=== PATIENT | female | born 1980 | race Caucasian/White ===

== ENCOUNTER 2018-11-21 08:46 | Emergency (ER) | payer BC, OTHER ==
[~2018-11-21] VITALS: Ht 170 cm; Wt 93.2 kg
[2018-11-21] MEDS ORDERED: NS IV 1000 ML 1,000 ML IV SCH (09:16)
[2018-11-21] MEDS ORDERED: LORazepam INJ 2 MG/ML (ATIVAN) VIAL IVP ONE ×2 (09:30→10:15)
[2018-11-21] MEDS ORDERED: ONDANSETRON 4 MG/2 ML (SDV) Z0FRAN IVP ONE (09:30)
[2018-11-21 09:32] LABS: HEMOGLOBIN 14.5 G/DL (11.5-16.0); RED CELL DISTRIBUTION WIDTH 13.8 % (10.0-14.5)
[2018-11-21 09:33] LABS: MEAN PLATELET VOLUME 10.1 FL (7.4-10.4)
[2018-11-21 09:57] LABS: ALANINE AMINOTRANSFERASE 47 U/L (0-55); ALKALINE PHOSPHATASE 63 U/L (40-136); BILIRUBIN,TOTAL 0.3 MG/DL (0.1-1.0); BUN/CREATININE RATIO 26; CALCIUM 9.6 MG/DL (8.5-10.1); CARBON DIOXIDE 21 MMOL/L (21-32); CHLORIDE 103 MMOL/L (98-107); CREATININE SERUM 0.62 MG/DL (0.60-1.30); GFR ESTIMATED > 60; GLUCOSE 150 MG/DL (70-105); POTASSIUM 4.2 MMOL/L (3.6-5.0); SODIUM 137 MMOL/L (135-145); TOTAL PROTEIN 7.5 GM/DL (6.4-8.2)
[2018-11-21 09:58] LABS: ALBUMIN 4.4 GM/DL (3.2-4.5)
--- NOTE | 2018-11-21 10:22 | ED Psychosocial ---
General Chief Complaint: Substance Abuse Stated Complaint: SHAKINESS WEAK Nursing Triage Note: PT COMES IN SHAKING AND CRAWLING OUT OF HER SKIN AND REPORTS SHE HAS BEEN DRINKING ABOUT A PINT OF WHISLEY EVERYDAY FOR THE PAST 2 WEEKS. SHE IS HAVING ANXIETY AND WITHDRAWALS THIS AM. History of Present Illness Date Seen by Provider: Nov 21, 2018 Time Seen by Provider: 08:45 Initial Comments The patient is a 38-year-old female with a history of anxiety and depression who presents with concern for tremulousness and anxiety as well as hypertension and tachycardia in the setting of several months of alcohol abuse. Patient states that over the past couple of days she has been trying to taper her drinking, which has typically been more than a pint a day of liquor. She states that over the past couple of days she has been more and more shaky. She denies any seizures. Patient is alert and oriented 4 and pleasantly and appropriately interactive and in no significant distress, although as noted is quite tremulous here in the emergency department. She denies fevers, vomiting, cough, shortness of breath or chest pain, abdominal pain of any kind, flank pain, back pain, dysuria or hematuria, changes in bowel habits. Allergies and Home Medications Allergies Coded Allergies: No Known Drug Allergies (Unverified , 11/21/18) Patient Home Medication List Home Medication List Reviewed: Yes Review of Systems Constitutional: see HPI All Other Systems Reviewed Negative Unless Noted: Yes (Negative excepted noted.) Past Nkgzlvl-Okjbdc-Gtbegk Hx Past Med/Social Hx: Reviewed Nursing Past Med/Soc Hx Patient Social History Alcohol Use: Regular Use Alcohol Beverage of Choice: Whiskey Recreational Drug Use: No 2nd Hand Smoke Exposure: No Recent Foreign Travel: No Contact w/Someone Who Travel: No Recent Infectious Disease Expo: No Physical Abuse: No Sexual Abuse: No Past Medical History Section Family Medical History Reviewed Nursing Family Hx Physical Exam Vital Signs - First Documented 11/21/18 08:55 Temp 36.2 Pulse 115 Resp 18 B/P (MAP) 160/105 (123) O2 Delivery Room Air Capillary Refill : Less Than 3 Seconds Height, Weight, BMI Height: '" Weight: lbs. oz. kg; 32.00 BMI Method: General Appearance: no apparent distress This is a middle-aged female appearing nontoxic and in no acute distress. She is quite tremulous and does appear mildly anxious. Head is normocephalic and atraumatic. Neck is supple and nontender. Oropharynx is moist. Lungs are clear to auscultation in all stations. There is normal S1 and S2 without rubs or gallops and capillary refill is appropriate, less than 2 seconds globally. Abdomen is soft, nontender and nondistended. Skin is warm and dry without cyanosis, clubbing or edema. Psychiatrically, the patient demonstrates appropriate mood and affect and is alert, although appears anxious as noted. Neurologically, patient moves all extremities equally and no lateralizing deficits are noted and there is a generalized tremor appreciated. She is alert and oriented 4. Progress/Results/Core Measures Results/Orders Lab Results Laboratory Tests Test 11/21/18 09:00 11/21/18 09:23 Range/Units Glucometer 152 H 70-110 MG/DL White Blood Count 7.0 4.3-11.0 10^3/uL Red Blood Count 4.27 L 4.35-5.85 10^6/uL Hemoglobin 14.5 11.5-16.0 G/DL Hematocrit 43 35-52 % Mean Corpuscular Volume 100 H 80-99 FL Mean Corpuscular Hemoglobin 34 25-34 PG Mean Corpuscular Hemoglobin Concent 34 32-36 G/DL Red Cell Distribution Width 13.8 10.0-14.5 % Platelet Count 308 130-400 10^3/uL Mean Platelet Volume 10.1 7.4-10.4 FL Sodium Level 137 135-145 MMOL/L Potassium Level 4.2 3.6-5.0 MMOL/L Chloride Level 103 98-107 MMOL/L Carbon Dioxide Level 21 21-32 MMOL/L Anion Gap 13 5-14 MMOL/L Blood Urea Nitrogen 16 7-18 MG/DL Creatinine 0.62 0.60-1.30 MG/DL Estimat Glomerular Filtration Rate > 60 BUN/Creatinine Ratio 26 Glucose Level 150 H 70-105 MG/DL Calcium Level 9.6 8.5-10.1 MG/DL Corrected Calcium 9.3 8.5-10.1 MG/DL Total Bilirubin 0.3 0.1-1.0 MG/DL Aspartate Amino Transf (AST/SGOT) 49 H 5-34 U/L Alanine Aminotransferase (ALT/SGPT) 47 0-55 U/L Alkaline Phosphatase 63 40-136 U/L Total Protein 7.5 6.4-8.2 GM/DL Albumin 4.4 3.2-4.5 GM/DL My Orders Orders - TOÑO SU MD Lorazepam Injection (Ativan Injection) (11/21/18 09:30) Ed Iv/Invasive Line Start (11/21/18 09:16) Ns Iv 1000 Ml (Sodium Chloride 0.9%) (11/21/18 09:16) Cbc No Diff (11/21/18 09:16) Comprehensive Metabolic Panel (11/21/18 09:16) Hcg,Qualitative Serum (11/21/18 09:16) Ondansetron Injection (Zofran Injectio (11/21/18 09:30) Hcg,Qualitative Urine (11/21/18 09:44) Lorazepam Injection (Ativan Injection) (11/21/18 10:15) Medications Given in ED Current Medications Medications Dose Ordered Sig/Atul Route Start Time Stop Time Status Last Admin Dose Admin Lorazepam 2 mg ONCE ONCE IVP 11/21/18 09:30 11/21/18 09:31 DC 11/21/18 09:28 2 MG Ondansetron HCl 4 mg ONCE ONCE IVP 11/21/18 09:30 11/21/18 09:31 DC 11/21/18 09:28 4 MG Vital Signs/I&O 11/21/18 08:55 Temp 36.2 Pulse 115 Resp 18 B/P (MAP) 160/105 (123) O2 Delivery Room Air Blood Pressure Mean: 123 Progress Progress Note : Time: 10:23 Progress Note Patient is in mild acute alcohol withdrawal by history and exam. We will treat with IV fluids, benzodiazepines and will check basic labs and we'll then reevaluate. If patient does feel considerably better and workup is reassuring, plan will likely be for discharge with a benzodiazepine taper to follow up very closely with primary care. If she discharges we will also provide alcohol treatment resources. The patient understands and agrees with this plan of care. Update 1020: Patient is feeling much, much better after benzodiazepines and IV fluids and antinausea medication here in the emergency department. Vital signs have normalized. She is no longer tremulous. She feels comfortable going home. We will prescribe a Librium taper. Patient is counseled that if she feels worse instead of better or develops other new symptoms of concern that she needs to return immediately for reevaluation. She understands that she is not to drink alcohol and take the benzodiazepines, and that if she takes the benzodiazepine she is not to drink. Patient is additionally counseled not to drive or operate machinery while taking benzodiazepines. All questions are answered. Departure Impression Primary Impression: Alcohol withdrawal syndrome Disposition: 01 HOME, SELF-CARE Condition: Improved Departure-Patient Inst. Referrals: NO,LOCAL PHYSICIAN (PCP/Family) Primary Care Physician Patient Instructions: ALCOHOL AND SUBSTANCE ABUSE, Alcohol Withdrawal Add. Discharge Instructions: Follow up in the next 1-2 days with your primary care doctor as discussed. Pursue outpatient treatment for your alcohol issues as discussed. Return to the ER right away with worsened symptoms or other new concerns. TOÑO SU MD Nov 21, 2018 10:22
[2018-11-21 10:49] VITALS: BP 143/94
== END 2018-11-21 10:50 | disposition home or self-care (01) ==
LOC: ER FS 08:48
DX: F10.239 Alcohol dependence with withdrawal, unspecified (principal); I10 Essential (primary) hypertension; F41.9 Anxiety disorder, unspecified; F32.9 Major depressive disorder, single episode, unspecified
CPT/HCPCS: 36415; 80053; 82962; 85027; 96361; 96374; 96375; 96376

== ENCOUNTER 2018-12-11 18:05 | Emergency (ER) | payer BC ==
[~2018-12-11] VITALS: Ht 171 cm; Wt 94.6 kg
[2018-12-11] MEDS ORDERED: NS IV 1000 ML 1,000 ML IV SCH (18:36)
[2018-12-11] MEDS ORDERED: LORazepam INJ 2 MG/ML (ATIVAN) VIAL IVP ONE ×2 (18:45→20:45)
--- NOTE | 2018-12-11 18:50 | ED Psychosocial ---
General Chief Complaint: Substance Abuse Stated Complaint: ALCOHOL WITHDRAW Nursing Triage Note: Patient here with c/o alcohol withdrawl. States she was seen here in the ED about a few weeks ago with the same symptoms was given some medicines and a prescription of librium which helped her stop drinking. She reports that she relapsed about 4 days ago and has been drinking a pink of whiskey daily. Her last reported drink was at 8pm last night. Source: patient History of Present Illness Date Seen by Provider: Dec 11, 2018 Time Seen by Provider: 18:08 Initial Comments 38-year-old female presenting with complaints of alcohol withdrawal. She states that she was here recently in the emergency department for the same symptoms. At that time she received some IV fluids and Ativan. She was then discharged on Librium. She was doing great on the Librium but when that ran out she went back to drinking alcohol. She was drinking at least for the last 4 days with more than a pint of whiskey today. Her last drink she reports was around 8 PM last night. She denies having any alcohol withdrawal seizures but states that she has had seizures when she was younger and they thought that it was from stopping Valium. She is very shaky and says that she feels like her heart is racing. Allergies and Home Medications Allergies Coded Allergies: No Known Drug Allergies (Unverified , 11/21/18) Home Medications Chlordiazepoxide HCl 25 Mg Capsule, 25 MG PO UD 50 mg by mouth four times a day for 1 day, 50 mg by mouth three times a day for 1 day, 25 mg four times a day for 1 day then 25 mg three times a day for 1 day then stop. Prescribed by: MAXIMILIANO HARTLEY on 12/11/18 [id number] Patient Home Medication List Home Medication List Reviewed: Yes Review of Systems Constitutional: No chills, No fever EENTM: no symptoms reported Respiratory: no symptoms reported Cardiovascular: see HPI, palpitations Gastrointestinal: no symptoms reported Genitourinary: no symptoms reported Musculoskeletal: no symptoms reported Skin: no symptoms reported Psychiatric/Neurological: Anxiety, Tremors Past Pztkjlk-Inxevx-Uyaiiu Hx Past Med/Social Hx: Reviewed Nursing Past Med/Soc Hx Patient Social History Number of Drinks Today: 0 Alcohol Beverage of Choice: Whiskey 2nd Hand Smoke Exposure: No Recent Foreign Travel: No Contact w/Someone Who Travel: No Recent Infectious Disease Expo: No Physical Abuse: No Sexual Abuse: No Mistreated: No Fear: No Past Medical History Surgeries: Yes Section : No Physical Exam Vital Signs - First Documented 12/11/18 18:11 Temp 36.8 Pulse 99 Resp 20 B/P (MAP) 175/ Pulse Ox 100 O2 Delivery Room Air Capillary Refill : Less Than 3 Seconds Height, Weight, BMI Height: '" Weight: lbs. oz. kg; 32.00 BMI Method: General Appearance: WD/WN, mild distress HEENT: PERRL/EOMI, normal ENT inspection, pharynx normal Neck: non-tender, full range of motion, supple, normal inspection Respiratory: chest non-tender, lungs clear, normal breath sounds, no respiratory distress, no accessory muscle use Cardiovascular: normal peripheral pulses, regular rate, rhythm Gastrointestinal: normal bowel sounds, non tender, soft, no pulsatile mass Extremities: normal range of motion, non-tender, normal inspection, no pedal edema, no calf tenderness Neurologic/Psychiatric: alert, normal mood/affect, oriented x 3, other (shaking and tremors of extremities) Appearance/Memory: appropriate appearance Behavior/Eye Contact: cooperative, good eye contact, normal speech Thoughts/Hallucinations: normal thought pattern, no apparent hallucination Skin: normal color, warm/dry Progress/Results/Core Measures Results/Orders Lab Results Laboratory Tests Test 12/11/18 18:40 12/11/18 19:25 Range/Units White Blood Count 10.5 4.3-11.0 10^3/uL Red Blood Count 4.21 L 4.35-5.85 10^6/uL Hemoglobin 14.3 11.5-16.0 G/DL Hematocrit 43 35-52 % Mean Corpuscular Volume 101 H 80-99 FL Mean Corpuscular Hemoglobin 34 25-34 PG Mean Corpuscular Hemoglobin Concent 34 32-36 G/DL Red Cell Distribution Width 13.3 10.0-14.5 % Platelet Count 262 130-400 10^3/uL Mean Platelet Volume 10.6 H 7.4-10.4 FL Neutrophils (%) (Auto) 74 42-75 % Lymphocytes (%) (Auto) 17 12-44 % Monocytes (%) (Auto) 7 0-12 % Eosinophils (%) (Auto) 1 0-10 % Basophils (%) (Auto) 1 0-10 % Neutrophils # (Auto) 7.8 1.8-7.8 X 10^3 Lymphocytes # (Auto) 1.8 1.0-4.0 X 10^3 Monocytes # (Auto) 0.7 0.0-1.0 X 10^3 Eosinophils # (Auto) 0.1 0.0-0.3 10^3/uL Basophils # (Auto) 0.1 0.0-0.1 10^3/uL Sodium Level 139 135-145 MMOL/L Potassium Level 3.5 L 3.6-5.0 MMOL/L Chloride Level 101 98-107 MMOL/L Carbon Dioxide Level 24 21-32 MMOL/L Anion Gap 14 5-14 MMOL/L Blood Urea Nitrogen 12 7-18 MG/DL Creatinine 0.66 0.60-1.30 MG/DL Estimat Glomerular Filtration Rate > 60 BUN/Creatinine Ratio 18 Glucose Level 106 H 70-105 MG/DL Calcium Level 9.3 8.5-10.1 MG/DL Corrected Calcium 8.9 8.5-10.1 MG/DL Total Bilirubin 0.4 0.1-1.0 MG/DL Aspartate Amino Transf (AST/SGOT) 37 H 5-34 U/L Alanine Aminotransferase (ALT/SGPT) 37 0-55 U/L Alkaline Phosphatase 54 40-136 U/L Total Protein 7.6 6.4-8.2 GM/DL Albumin 4.5 3.2-4.5 GM/DL Salicylates Level < 5.0 L 5.0-20.0 MG/DL Acetaminophen Level < 10 L 10-30 UG/ML Serum Alcohol < 10 <10 MG/DL Urine Color YELLOW Urine Clarity SL CLOUDY Urine pH 7.0 5-9 Urine Specific [place] 1.020 1.016-1.022 Urine Protein 1+ H NEGATIVE Urine Glucose (UA) NEGATIVE NEGATIVE Urine Ketones 1+ H NEGATIVE Urine Nitrite NEGATIVE NEGATIVE Urine Bilirubin NEGATIVE NEGATIVE Urine Urobilinogen 0.2 NORMAL MG/DL Urine Leukocyte Esterase NEGATIVE NEGATIVE Urine RBC (Auto) 2+ H NEGATIVE Urine RBC 5-10 H /HPF Urine WBC NONE /HPF Urine Squamous Epithelial Cells >50 H /HPF Urine Crystals NONE /LPF Urine Bacteria MODERATE H /HPF Urine Casts NONE /LPF Urine Mucus NEGATIVE /LPF Urine Culture Indicated NO Urine Test NEGATIVE NEGATIVE Urine Opiates Screen NEGATIVE NEGATIVE Urine Oxycodone Screen NEGATIVE NEGATIVE Urine Methadone Screen NEGATIVE NEGATIVE Urine Propoxyphene Screen NEGATIVE NEGATIVE Urine Barbiturates Screen NEGATIVE NEGATIVE Ur Tricyclic Antidepressants Screen NEGATIVE NEGATIVE Urine Phencyclidine Screen NEGATIVE NEGATIVE Urine Amphetamines Screen NEGATIVE NEGATIVE Urine Methamphetamines Screen NEGATIVE NEGATIVE Urine Benzodiazepines Screen POSITIVE H NEGATIVE Urine Cocaine Screen NEGATIVE NEGATIVE Urine Cannabinoids Screen POSITIVE H NEGATIVE My Orders Orders - MAXIMILIANO HARTLEY MD Ua Culture If Indicated (12/11/18 18:36) Cbc With Automated Diff (12/11/18 18:36) Comprehensive Metabolic Panel (12/11/18 18:36) Alcohol (12/11/18 18:36) Drug Screen Stat (Urine) (12/11/18 18:36) Acetaminophen (12/11/18 18:36) Salicylate (12/11/18 18:36) Ekg Tracing (12/11/18 18:36) Hcg,Qualitative Urine (12/11/18 18:36) Ed Iv/Invasive Line Start (12/11/18 18:36) Monitor-Rhythm Ecg Trace Only (12/11/18 18:36) Ns Iv 1000 Ml (Sodium Chloride 0.9%) (12/11/18 18:36) Lorazepam Injection (Ativan Injection) (12/11/18 18:45) Lorazepam Injection (Ativan Injection) (12/11/18 20:45) Rx-Lorazepam (Rx-Ativan) (12/11/18 20:45) Medications Given in ED Current Medications Medications Dose Ordered Sig/Atul Route Start Time Stop Time Status Last Admin Dose Admin Lorazepam 0.5 mg Q6H PRN PO 12/11/18 20:45 12/11/18 21:10 DC 12/11/18 20:50 0.5 MG Lorazepam 2 mg ONCE ONCE IVP 12/11/18 18:45 12/11/18 18:46 DC 12/11/18 18:59 2 MG Lorazepam 2 mg ONCE ONCE IVP 12/11/18 20:45 12/11/18 20:46 DC 12/11/18 20:49 2 MG Vital Signs/I&O 12/11/18 12/11/18 18:11 21:08 Temp 36.8 36.9 Pulse 99 79 Resp 20 16 B/P (MAP) 175/ 149/88 Pulse Ox 100 98 O2 Delivery Room Air Room Air Progress Progress Note #1: Progress Note Obtain labs and ECG. Give IVF with Ativan 2 mg IV for her elevated blood pressure and shaking with tremor. Progress Note #2: Progress Note Labs stable and no alcohol or toxic levels of drugs in her system. Treat with an additional Ativan dose here and discharge on Librium Taper as well as Take home pack of Lorazepam. Encouraged to not drink alcohol or use drugs. Initial ECG Impression Date: Dec 11, 2018 Initial ECG Impression Time: 18:40 Initial ECG Rate: 74 Initial ECG Rhythm: Normal Sinus Initial ECG Comparisson: No Previous ECG Available Comment Sinus rhythm with heart rate of 74 bpm. QT interval 379 ms and a QT corrected interval 421 ms. She has no acute ST elevation. There is no prior tracing for comparison. Departure Impression Primary Impression: Alcohol withdrawal Qualified Codes: F10.230 - Alcohol dependence with withdrawal, uncomplicated Additional Impression: Tremor due to drug withdrawal Disposition: 01 HOME, SELF-CARE Condition: Stable Departure-Patient Inst. Decision time for Depature: 20:52 Referrals: NO,LOCAL PHYSICIAN (PCP) Primary Care Physician [facility] [place] Patient Instructions: ALCOHOL AND SUBSTANCE ABUSE, Alcohol Abuse and Alcoholism (DC), Alcohol Withdrawal Add. Discharge Instructions: Follow up with Preethi Ahn or provider of your choice for continued care and symptoms. Do not drink any more alcohol. Use the medicine to help with tremor and withdrawal symptoms. All discharge instructions reviewed with patient and/or family. Voiced understanding. Scripts Chlordiazepoxide HCl (Chlordiazepoxide HCl) 25 Mg Capsule 25 MG PO UD for alcohol withdrawal for 4 Days, #21 CAP 0 Refills 50 mg by mouth four times a day for 1 day, 50 mg by mouth three times a day for 1 day, 25 mg four times a day for 1 day then 25 mg three times a day for 1 day then stop. Prov: MAXIMILIANO HARTLEY MD 12/11/18 MAXIMILIANO HARTLEY MD Dec 11, 2018 18:50
[2018-12-11 18:53] LABS: HEMOGLOBIN 14.3 G/DL (11.5-16.0); MEAN CORPUSCULAR HEMOGLOBIN 34 PG (25-34); WHITE BLOOD COUNT 10.5 10^3/uL (4.3-11.0)
[2018-12-11 18:54] LABS: BASOPHILS # (AUTO) 0.1 10^3/uL (0.0-0.1); BASOPHILS % (AUTO) 1 % (0-10); EOSINOPHILS # (AUTO) 0.1 10^3/uL (0.0-0.3); EOSINOPHILS % (AUTO) 1 % (0-10); HEMATOCRIT 43 % (35-52); LYMPHOCYTES # (AUTO) 1.8 X 10^3 (1.0-4.0); LYMPHOCYTES % (AUTO) 17 % (12-44); MEAN CORPUSCULAR HGB CONC 34 G/DL (32-36); MEAN CORPUSCULAR VOLUME 101 FL (80-99); MEAN PLATELET VOLUME 10.6 FL (7.4-10.4); MONOCYTES # (AUTO) 0.7 X 10^3 (0.0-1.0); MONOCYTES % (AUTO) 7 % (0-12); NEUTROPHILS # (AUTO) 7.8 X 10^3 (1.8-7.8); NEUTROPHILS % (AUTO) 74 % (42-75); PLATELET COUNT 262 10^3/uL (130-400); RED CELL DISTRIBUTION WIDTH 13.3 % (10.0-14.5)
[2018-12-11 19:06] LABS: CHLORIDE 101 MMOL/L (98-107); POTASSIUM 3.5 MMOL/L (3.6-5.0); SODIUM 139 MMOL/L (135-145)
[2018-12-11 19:07] LABS: ACETAMINOPHEN < 10 UG/ML (10-30); ALANINE AMINOTRANSFERASE 37 U/L (0-55); ALBUMIN 4.5 GM/DL (3.2-4.5); ALKALINE PHOSPHATASE 54 U/L (40-136); BILIRUBIN,TOTAL 0.4 MG/DL (0.1-1.0); BUN/CREATININE RATIO 18; CALCIUM 9.3 MG/DL (8.5-10.1); CARBON DIOXIDE 24 MMOL/L (21-32); CREATININE SERUM 0.66 MG/DL (0.60-1.30); GFR ESTIMATED > 60; GLUCOSE 106 MG/DL (70-105); SALICYLATE < 5.0 MG/DL (5.0-20.0); TOTAL PROTEIN 7.6 GM/DL (6.4-8.2)
[2018-12-11 19:42] LABS: HCG,QUALITATIVE URINE NEGATIVE (NEGATIVE)
[2018-12-11 19:49] LABS: BILIRUBIN,URINE NEGATIVE (NEGATIVE); CLARITY,URINE SL CLOUDY; COLOR,URINE YELLOW; GLUCOSE, URINE (UA) NEGATIVE (NEGATIVE); KETONES,URINE 1+ (NEGATIVE); LEUKOCYTE ESTERASE ,URINE NEGATIVE (NEGATIVE); NITRITE,URINE NEGATIVE (NEGATIVE); PROTEIN,URINE 1+ (NEGATIVE)
[2018-12-11 19:50] LABS: BACTERIA,URINE MODERATE /HPF; SQUAMOUS EPITHELIAL CELL,UR >50 /HPF
[2018-12-11 19:52] LABS: AMPHETAMINE SCREEN, URINE NEGATIVE (NEGATIVE); BARBITURATE SCREEN URINE NEGATIVE (NEGATIVE); BENZODIAZEPINES SCREEN URINE POSITIVE (NEGATIVE); CANNABINOID SCREEN, URINE POSITIVE (NEGATIVE); COCAINE SCREEN URINE NEGATIVE (NEGATIVE); METHADONE STAT NEGATIVE (NEGATIVE); METHAMPHETAMINE SCREEN URINE S NEGATIVE (NEGATIVE); OPIATE SCREEN URINE NEGATIVE (NEGATIVE); OXYCODONE STAT NEGATIVE (NEGATIVE); PROPOXYPHENE STAT NEGATIVE (NEGATIVE); TRICYCLIC ANTIDEPRESSANTS SCRE NEGATIVE (NEGATIVE)
--- NOTE | 2018-12-11 19:56 | NUR ---
BLOOD PRESSURE IS 146/85
[2018-12-11] MEDS ORDERED: RX-LORAZEPAM (ATIVAN) 0.5 MG TAB PPK#4 PO PRN (20:45)
[2018-12-11] MEDS ORDERED: CHLO25CA10 PO (21:07)
[2018-12-11 21:08] VITALS: BP 149/88
== END 2018-12-11 21:10 | disposition home or self-care (01) ==
LOC: EDUNIT# 18:05 → ER FS 18:08
DX: F10.239 Alcohol dependence with withdrawal, unspecified (principal); G25.1 Drug-induced tremor
CPT/HCPCS: 36415; 80053; 80306; 80320; 80329; 81000; 84703; 85025; 93005; 93041